=== PATIENT | male | born 1950 | race Caucasian/White ===

== ENCOUNTER 2018-05-30 07:01 | Day surgery (SDC) | payer MEDICARE, BC ==
[~2018-05-30 07:01] MED LIST: Lactated Ringers 1,000 ML IV SCH; Sodium Chloride 0.9% 10 ML Syringe FLUSH PRN
[2018-05-30] MEDS ORDERED: Propofol 200 MG/20 ML SDV IV ONE (08:36)
[2018-05-30] MEDS ORDERED: Midazolam 1 MG/ML 2 ML SDV IV ONE (08:36)
--- NOTE | 2018-05-30 09:03 | PCM.OPNOTE ---
- General Post-Op/Procedure Note Date of Surgery/Procedure: 05/30/18 Operative Procedure(s): c scope Findings: normal exam Pre Op Diagnosis: hx of colon polyps Post-Op Diagnosis: Same Anesthesia Technique: MAC Primary Surgeon: Cong Hicks Anesthesia Provider: Marcelle Watt Pathology: none Complications: None Condition: Good Free Text/Narrative:: see dictation
--- NOTE | 2018-05-30 09:20 | OR ---
DATE OF OPERATION: 05/30/2018 SURGEON: Cong Hicks MD PROCEDURE PERFORMED: Colonoscopy. PREOPERATIVE DIAGNOSIS: History of adenomatous polyps. POSTOPERATIVE DIAGNOSIS: Normal scope. INDICATIONS FOR PROCEDURE: This is a 67-year-old white male who has a known history of adenomatous polyps, has had a left-sided colon resection. He presents now for a followup colonoscopy. DESCRIPTION OF PROCEDURE: After an excellent IV sedation was administered, digital rectal exam was performed. No marked abnormality was noted. Flexible colonoscope was inserted and advanced without difficulty to the cecum. The prep was excellent. The following findings were noted. Ascending colon, unremarkable. Transverse colon, unremarkable. Descending colon and sigmoid, this section was shortened. No obvious anastomosis was seen. No evidence of adenomatous polyps noted. Rectum and anus, essentially unremarkable, some evidence of internal hemorrhoids. Colon was deflated. The scope was removed. The patient tolerated the procedure well. RECOMMENDATIONS: Repeat scope in 10 years. /[id number] PHYLICIA/DEBORAH
[2018-05-30 10:05] VITALS: BP 130/84
== END 2018-05-30 10:04 | disposition home or self-care (01) ==
LOC: FB.SDS 07:01
PROVIDERS: ATTEND Surgery
DX: Z09 Encounter for follow-up examination after completed treatment for conditions other than malignant neoplasm (principal); K64.8 Other hemorrhoids; I10 Essential (primary) hypertension; E11.65 Type 2 diabetes mellitus with hyperglycemia; E66.9 Obesity, unspecified; Z68.41 Body mass index [BMI] 40.0-44.9, adult; C18.9 Malignant neoplasm of colon, unspecified; E78.2 Mixed hyperlipidemia; Z86.010 Personal history of colon polyps; Z79.84 Long term (current) use of oral hypoglycemic drugs; Z79.82 Long term (current) use of aspirin; Z79.899 Other long term (current) drug therapy; Z90.49 Acquired absence of other specified parts of digestive tract; Z88.8 Allergy status to other drugs, medicaments and biological substances; Z87.891 Personal history of nicotine dependence
CPT/HCPCS: 00811-QZ; 82962; J2250; J2704; J7120